=== PATIENT | female | born 1970 | race Two or more races ===

== ENCOUNTER → 2020-07-18 | Outpatient (CLI) | payer OTHER | END | disposition home or self-care (01) | LOC: LAB 11:18 | PROVIDERS: ATTEND Nurse Practitioner Family | DX: U07.1 COVID-19 (principal) | CPT/HCPCS: C9803; U0003 ==

== ENCOUNTER 2024-01-30 12:25 | Emergency (ER) | payer BC ==
[~2024-01-30] VITALS: Ht 162.6 cm; Wt 74.1 kg
[~2024-01-30 12:25] MED LIST: NITR-87 PO
[2024-01-30 13:07] LABS: Basophils # (auto) 0 10 ^3/uL (0-0.2); Basophils % (auto) 0.2 % (0.0-2.0); Eosinophils # (auto) 0.1 10 ^3/uL (0-0.8); Eosinophils % (auto) 0.8 % (0.0-7.0); Hematocrit 49.5 % (36.0-46.0); Hemoglobin 16.6 g/dL (12.2-16.2); Lymphocytes # (auto) 0.6 10 ^3/uL (0.4-5.4); Lymphocytes % (auto) 6.8 % (10.0-50.0); Mean Corpuscular Hemoglobin 30.8 pg (28.0-32.0); Mean Corpuscular Hgb Conc. 33.7 g/dL (32.0-36.0); Mean Corpuscular Volume 91.6 fL (80.0-100.0); Monocytes # (auto) 0.3 10 ^3/uL (0-1.3); Monocytes % (auto) 2.9 % (0.0-12.0); Neutrophils # (auto) 7.7 10 ^3/uL (1.6-8.6); Neutrophils % (auto) 89.3 % (37.0-80.0); Red Cell Distribution Width 12.6 % (11.8-14.3); White Blood Cell 8.6 10^3/uL (4.4-10.8)
[2024-01-30 13:11] LABS: Chloride 108 mmol/L (98-107); Potassium 3.7 mmol/L (3.5-5.1); Sodium 141 mmol/L (136-145)
[2024-01-30 13:12] LABS: Anion Gap 7 (5-15); Carbon Dioxide 26 mmol/L (20-30)
[2024-01-30 13:13] LABS: Calcium 10.5 mg/dL (8.5-10.1)
[2024-01-30] MEDS: SODIUM CHLORIDE 0.9% 1,000 ML IV ONE ×2 (13:13→13:22)
[2024-01-30 13:17] LABS: BUN/Creatinine Ratio 18.6 (10.0-20.0); Blood Urea Nitrogen 13 mg/dL (9-23); Glucose 128 mg/dL (74-106)
[2024-01-30] MEDS: KETOROLAC TROMETH 30 MG/ML 1ML VIAL IV ONE (13:23)
[2024-01-30] MEDS: ONDANSETRON HCL 4 MG/2 ML VIAL IV ONE (13:25)
[2024-01-30 13:53] LABS: Lipase 44 U/L (12-53)
[2024-01-30] MEDS ORDERED: DIPH2.5T73 PO (14:50)
[2024-01-30] MEDS ORDERED: ZOFR4T PO (14:50)
[2024-01-30] MEDS ORDERED: METR-344 PO (14:50)
[2024-01-30] MEDS: cefTRIAXone 1GM/50ML D5W 50 ML IV ONE (15:34)
[2024-01-30] MEDS: metroNIDAZOLE 500MG/100ML 100 ML IV ONE (15:34)
[2024-01-30] MEDS: DIPHENOXYLATE W/ATROPINE 2.5 MG TAB PO ONE (15:37)
[2024-01-30] MEDS: MORPHINE SULFATE 4 MG/ML SYR/VIAL IV ONE (15:47)
[2024-01-30 15:50] VITALS: PULSE 84; RESP 15; O2SAT 98
[2024-01-30 15:57] VITALS: TEMP 98.4; O2SAT 97
[2024-01-30 16:16] VITALS: BP 112/71; PULSE 74; RESP 14
[2024-01-30 18:10] LABS: Urine Bacteria FEW /hpf (None Seen); Urine Blood Negative /uL (Negative); Urine Clarity Clear (Clear); Urine Color Yellow (Yellow); Urine Hyaline Cast FEW /lpf (0 - 2); Urine Mucus FEW (None Seen); Urine Protein, UAD 1+ (Negative); Urine Specific Gravity 1.025 (1.001-1.035); Urine Urobilinogen Normal (Negative); Urine WBC 4 /hpf (0 - 5); Urine pH 6.5 (5.0-9.0)
== END 2024-01-30 16:18 | disposition home or self-care (01) ==
LOC: ER 12:25 → EEVIPCON 12:25 → ER 16:18
DX: K52.9 Noninfective gastroenteritis and colitis, unspecified (principal); F41.9 Anxiety disorder, unspecified; I10 Essential (primary) hypertension
CPT/HCPCS: 36415; 80048; 81001; 83690; 85025; 96361; 96365; 96368; 96375; 99285; J0696; J1885; J2270; J2405; J3490; J7030